=== PATIENT | female | born 1955 | race Two or more races ===

== ENCOUNTER → 2017-02-06 | Outpatient (CLI) | payer BC, OTHER ==
--- NOTE | 2017-02-06 12:35 | REP ---
Left knee six views : There is no fracture or dislocation. Mineralization and joint spaces are normal. There are no calcifications or foreign bodies. Impression: Negative left knee . Signed by Ariel Wing MD 02/06/2017 12:27 P
== END ==
LOC: M LRY 11:55
PROVIDERS: ATTEND Nurse Practitioner Family
DX: M25.562 Pain in left knee (principal)

== ENCOUNTER → 2018-08-30 | Outpatient (REF) | payer OTHER | LOC: M LAB REF 11:45 | PROVIDERS: ATTEND Registered Nurse | DX: L82.0 Inflamed seborrheic keratosis (principal) ==

== ENCOUNTER → 2022-07-19 | Outpatient (REF) | payer MEDICARE, OTHER ==
[2022-07-19 19:09] LABS: APPEARANCE, URINE MANUAL CLEAR (CLEAR); BILIRUBIN, URINE MANUAL NEGATIVE (NEGATIVE); COLOR, URINE MANUAL DK YELLOW (YELLOW); GLUCOSE, URINE (UA) MANUAL NEGATIVE (NEGATIVE); KETONE, URINE MANUAL NEGATIVE (NEGATIVE); NITRITE, URINE MANUAL NEGATIVE (NEGATIVE); UROBILINOGEN, URINE MANUAL NORMAL (NORMAL)
[2022-07-19 19:10] LABS: BLOOD URINE MANUAL NEGATIVE (NEGATIVE)
[2022-07-19 19:33] LABS: LEUKOCYTE ESTERASE, URINE MAN NEGATIVE (NEGATIVE); PROTEIN, URINE MANUAL TRACE mg/dL (NEGATIVE)
[2022-07-19 20:39] LABS: WBC, URINE NONE SEEN /hpf (0-3)
[2022-07-19 20:40] LABS: BACTERIA, URINE SMALL AMOUNT; CALCIUM OXALATE CRYSTALS,URINE LARGE AMOUNT /hpf; HYALINE CAST, URINE NONE SEEN /lpf (0-1); MUCUS, URINE LARGE AMOUNT (NEGATIVE); RBC, URINE NONE SEEN /hpf (0-3); SQUAMOUS EPITHELIAL CELL URINE SMALL AMOUNT /hpf (SMALL AMT)
== END ==
LOC: M SMT 17:09
PROVIDERS: ATTEND Nurse Practitioner Women's Health
DX: R39.15 Urgency of urination (principal)

== ENCOUNTER → 2024-05-14 | Outpatient (REF) | payer MEDICARE, OTHER, BC ==
[2024-05-14 13:56] LABS: APPEARANCE, URINE TURBID (CLEAR); BACTERIA, URINE AUTO NEGATIVE (NEGATIVE); BILIRUBIN, URINE AUTO NEGATIVE (NEGATIVE); BLOOD, URINE BLOOD NEGATIVE (NEGATIVE); CALCIUM OXALATE CRYSTALS LARGE; COLOR, URINE AMBER (YELLOW); GLUCOSE, URINE (UA) AUTO NEGATIVE (NEGATIVE); KETONE, URINE AUTO NEGATIVE (NEGATIVE); LEUKOCYTE ESTERASE, URINE AUTO 1+ (NEGATIVE); MUCUS, URINE SMALL (NEGATIVE); NITRITE, URINE AUTO NEGATIVE (NEGATIVE); PROTEIN, URINE AUTO NEGATIVE (NEGATIVE); RBC, URINE AUTO 1 /HPF (0-3); SPECIFIC GRAVITY URINE AUTO 1.025 (1.002-1.035); SQUAMOUS EPITHELIAL CELL UR AU 5 /HPF (0-6); WBC, URINE AUTO 7 /HPF (0-3)
== END ==
LOC: M SMT 13:35
PROVIDERS: ATTEND Nurse Practitioner Family
DX: N39.0 Urinary tract infection, site not specified (principal)

== ENCOUNTER → 2024-09-21 | Outpatient (REF) | LOC: M LABCFH 16:21 | PROVIDERS: ATTEND Physician Assistant | DX: N39.0 Urinary tract infection, site not specified (principal) ==

== ENCOUNTER → 2025-01-01 | Outpatient (REF) | LOC: M LABCFH 13:14 | DX: N39.0 Urinary tract infection, site not specified (principal) ==

== ENCOUNTER → 2025-03-29 | Outpatient (REF) | LOC: M LABCFH 11:59 | DX: N39.0 Urinary tract infection, site not specified (principal) ==

== ENCOUNTER 2025-08-21 21:28 | Inpatient (IN) | payer MEDICARE, OTHER, BC ==
[~2025-08-21] VITALS: Ht 162.6 cm; Wt 51.6 kg
[2025-08-22] VITALS (8 sets, daily range): BP systolic 95–112; BP diastolic 53–57; TEMP 97.5–100; O2SAT 90–96
[2025-08-22] MEDS ORDERED: ACETAMINOPHEN 325 MG TAB PO PRN (00:20)
[2025-08-22 01:18] LABS: PLATELET COUNT, AUTOMATED 295 10^3/uL (150-450)
[2025-08-22 01:41] LABS: ALT/SGPT 43 U/L (7.0-40); AST/SGOT 101 U/L (<34); CALCIUM LEVEL 7.1 MG/DL (8.3-10.6); CARBON DIOXIDE LEVEL 26 MMOL/L (20-31); CHLORIDE LEVEL 104 MMOL/L (98-107); CREATININE FOR GFR 0.61 MG/DL (0.55-1.30); GLOMERULAR FILTRATION RATE > 90.0 (>45); POTASSIUM SERUM 3.5 MMOL/L (3.5-5.1); SODIUM LEVEL 139 MMOL/L (136-145)
[2025-08-22] MEDS: DOXYCYCLINE HYCLATE 100 MG TABLET PO SCH (02:30)
[2025-08-22] MEDS: cefTRIAXone SOD 1 GM in DEXTROSE 5% (D5W) ADV/MINI-BAG 50 ML IV SCH (02:31)
[2025-08-22] MEDS: IPRATROPIUM 0.5 MG/ALBUTEROL 2.5 MG INH SOL UD 3 ML INH SCH (02:55)
[2025-08-22] MEDS: BENZONATATE 100 MG CAPSULE PO SCH (05:56)
[2025-08-22] MEDS ORDERED: ENOXAPARIN 40 MG/0.4 ML SYRINGE (J1650 PER 10MG) SC SCH (09:00)
[2025-08-22] MEDS: OSELTAMIVIR PHOSPHATE 75 MG CAP PO SCH (09:39)
[2025-08-22] MEDS: DOCUSATE SODIUM 100 MG CAPSULE PO SCH (09:40)
[2025-08-22] MEDS ORDERED: AMPH1CAP16 PO (10:25)
[2025-08-22] MEDS ORDERED: LEVO75TA4 PO (10:25)
[2025-08-22] MEDS ORDERED: HOME MED LIST COMPLETE! XX SCH (10:25)
[2025-08-22] MEDS ORDERED: TREL1AER INH (10:25)
[2025-08-22] MEDS ORDERED: ZOLO100T PO (10:25)
[2025-08-22] MEDS ORDERED: LIFI1DRO4 OU (10:25)
[2025-08-22] MEDS ORDERED: ALEN70TA82 PO (10:25)
[2025-08-22] MEDS ORDERED: SUMA50TA2 PO (10:25)
[2025-08-22] MEDS: LEVOTHYROXINE 75 MCG TABLET (0.075 MG) PO SCH (11:55)
[2025-08-22] MEDS: SERTRALINE 100 MG TAB PO SCH (11:55)
[2025-08-22] MEDS: BUDESONIDE 0.5 MG/2 ML INHALATION SUSPENSION NEB SCH (13:15)
[2025-08-22] MEDS: LR 1,000 ML IV SCH (15:01)
[2025-08-22] MEDS: ENOXAPARIN 80 MG/0.8 ML SYRINGE (J1650 PER 10MG) SC SCH (21:33)
[2025-08-23 04:08] VITALS: BP 106/61; TEMP 97.5; O2SAT 93
[2025-08-23 06:19] LABS: BASO # 0.1 10^3/uL (0.0-0.2); BASO % 0.3 % (0.0-1.0); EOS # 0.0 10^3/uL (0.0-0.5); EOS % 0.1 % (0.0-3.0); LYMPH # 1.1 10^3/uL (1.5-5.0); LYMPH % 6.2 % (24.0-44.0); MONO # 1.0 10^3/uL (0.0-0.8); MONO % 5.5 % (2.0-8.0); NEUTROPHILS # 15.5 10^3/uL (1.5-8.5); NEUTROPHILS % 85.7 % (36.0-66.0); PLATELET COUNT, AUTOMATED 313 10^3/uL (150-450)
[2025-08-23 06:51] LABS: ALT/SGPT 73 U/L (7.0-40); AST/SGOT 149 U/L (<34); CALCIUM LEVEL 7.5 MG/DL (8.3-10.6); CARBON DIOXIDE LEVEL 28 MMOL/L (20-31); CHLORIDE LEVEL 105 MMOL/L (98-107); CREATININE FOR GFR 0.51 MG/DL (0.55-1.30); GLOMERULAR FILTRATION RATE > 90.0 (>45); MAGNESIUM LEVEL 1.8 MG/DL (1.8-2.4); POTASSIUM SERUM 3.5 MMOL/L (3.5-5.1); SODIUM LEVEL 142 MMOL/L (136-145)
[2025-08-23] MEDS: POTASSIUM CHLORIDE 10MEQ SR TABLET PO ONE (09:13)
[2025-08-23] MEDS: MAG SULF 1GM/100ML (MAG RUN) 1 GM in IV 1 EA IV ONE (09:13)
[2025-08-23 11:58] VITALS: BP 96/58; TEMP 98; O2SAT 95
[2025-08-23 19:58] VITALS: BP 102/59; TEMP 98.3; O2SAT 97
[2025-08-24 04:17] VITALS: BP 109/55; TEMP 97.6; O2SAT 96
[2025-08-24 05:47] LABS: BASO # 0.0 10^3/uL (0.0-0.2); BASO % 0.2 % (0.0-1.0); EOS # 0.0 10^3/uL (0.0-0.5); EOS % 0.3 % (0.0-3.0); LYMPH # 1.3 10^3/uL (1.5-5.0); LYMPH % 9.5 % (24.0-44.0); MONO # 0.9 10^3/uL (0.0-0.8); MONO % 6.3 % (2.0-8.0); NEUTROPHILS # 11.1 10^3/uL (1.5-8.5); NEUTROPHILS % 81.1 % (36.0-66.0); PLATELET COUNT, AUTOMATED 353 10^3/uL (150-450)
[2025-08-24 06:06] LABS: C REACTIVE PROTEIN QUANTITATIV 7.65 MG/DL (<1.0)
[2025-08-24 06:13] LABS: ALT/SGPT 57 U/L (7.0-40); AST/SGOT 78 U/L (<34); CALCIUM LEVEL 7.4 MG/DL (8.3-10.6); CARBON DIOXIDE LEVEL 28 MMOL/L (20-31); CHLORIDE LEVEL 107 MMOL/L (98-107); CREATININE FOR GFR 0.49 MG/DL (0.55-1.30); GLOMERULAR FILTRATION RATE > 90.0 (>45); MAGNESIUM LEVEL 1.9 MG/DL (1.8-2.4); POTASSIUM SERUM 4.3 MMOL/L (3.5-5.1); SODIUM LEVEL 142 MMOL/L (136-145)
[2025-08-24 12:00] VITALS: BP 134/82; TEMP 98.1; O2SAT 91
[2025-08-24 21:17] VITALS: BP 125/65; TEMP 97.8; O2SAT 95
[2025-08-25 03:54] VITALS: BP 137/77; TEMP 98.2; O2SAT 97
[2025-08-25 06:27] LABS: BASO # 0.0 10^3/uL (0.0-0.2); BASO % 0.3 % (0.0-1.0); EOS # 0.0 10^3/uL (0.0-0.5); EOS % 0.2 % (0.0-3.0); LYMPH # 1.4 10^3/uL (1.5-5.0); LYMPH % 10.1 % (24.0-44.0); MONO # 1.1 10^3/uL (0.0-0.8); MONO % 7.7 % (2.0-8.0); NEUTROPHILS # 11.2 10^3/uL (1.5-8.5); NEUTROPHILS % 79.6 % (36.0-66.0); PLATELET COUNT, AUTOMATED 453 10^3/uL (150-450)
[2025-08-25 06:41] LABS: CALCIUM LEVEL 8.0 MG/DL (8.3-10.6); CARBON DIOXIDE LEVEL 27 MMOL/L (20-31); CHLORIDE LEVEL 107 MMOL/L (98-107); CREATININE FOR GFR 0.50 MG/DL (0.55-1.30); GLOMERULAR FILTRATION RATE > 90.0 (>45); POTASSIUM SERUM 4.5 MMOL/L (3.5-5.1); SODIUM LEVEL 142 MMOL/L (136-145)
[2025-08-25 12:00] VITALS: BP 121/83; TEMP 97.7; O2SAT 93
[2025-08-25] MEDS ORDERED: ENOX80IN3 SC (16:49)
[2025-08-25 20:47] VITALS: BP 125/88; TEMP 98.1; O2SAT 92
[2025-08-26 04:00] VITALS: BP 133/80; TEMP 98.6; O2SAT 92
[2025-08-26 06:18] LABS: BASO # 0.0 10^3/uL (0.0-0.2); BASO % 0.3 % (0.0-1.0); EOS # 0.0 10^3/uL (0.0-0.5); EOS % 0.3 % (0.0-3.0); LYMPH # 1.6 10^3/uL (1.5-5.0); LYMPH % 14.0 % (24.0-44.0); MONO # 0.9 10^3/uL (0.0-0.8); MONO % 7.9 % (2.0-8.0); NEUTROPHILS # 8.7 10^3/uL (1.5-8.5); NEUTROPHILS % 75.1 % (36.0-66.0); PLATELET COUNT, AUTOMATED 499 10^3/uL (150-450)
[2025-08-26 12:10] VITALS: BP 118/73; TEMP 98.4; O2SAT 93
[2025-08-26] MEDS ORDERED: OSEL75CA2 PO (14:25)
[2025-08-26] MEDS ORDERED: BENZ-18 PO (14:25)
[2025-08-26] MEDS ORDERED: ENOX80IN3 SC (14:25)
[2025-08-26] MEDS ORDERED: AMOX875T2 PO (14:26)
[2025-08-26 20:45] VITALS: BP 119/63; TEMP 98.4; O2SAT 91
[2025-08-27 04:45] VITALS: BP 123/73; TEMP 99; O2SAT 93
== END 2025-08-27 12:20 | disposition home health service (06) | DRG 871 ==
LOC: INTOOBSV 08-22 00:08 → M MSPAV 08-22 00:08 → OBSVTOIN 08-22 00:16
PROVIDERS: ADMIT Student in an Organized Health Care Education/Training Program; ATTEND Student in an Organized Health Care Education/Training Program
PROC: B246ZZZ Ultrasonography of Right and Left Heart (ICD-10-PCS; principal; 2025-08-22)
DX: A41.9 Sepsis, unspecified organism (principal); J18.9 Pneumonia, unspecified organism; J96.01 Acute respiratory failure with hypoxia; J10.00 Influenza due to other identified influenza virus with unspecified type of pneumonia; J44.0 Chronic obstructive pulmonary disease with (acute) lower respiratory infection; D68.61 Antiphospholipid syndrome; K50.90 Crohn's disease, unspecified, without complications; I10 Essential (primary) hypertension; E03.9 Hypothyroidism, unspecified; G47.33 Obstructive sleep apnea (adult) (pediatric); M81.0 Age-related osteoporosis without current pathological fracture; G89.4 Chronic pain syndrome; Z87.891 Personal history of nicotine dependence; Z79.890 Hormone replacement therapy; Z79.899 Other long term (current) drug therapy; Z88.8 Allergy status to other drugs, medicaments and biological substances; Z91.048 Other nonmedicinal substance allergy status; Z99.81 Dependence on supplemental oxygen

== ENCOUNTER → 2025-08-21 | Outpatient (REF) ==
[~2025-08-21] MED LIST: ALEN70TA82 PO; AMOX875T2 PO; AMPH1CAP16 PO; BENZ-18 PO; ENOX80IN3 SC; LEVO75TA4 PO; LIFI1DRO4 OU; OSEL75CA2 PO; SUMA50TA2 PO; TREL1AER INH; ZOLO100T PO
== END ==
LOC: M CFLAB 14:12
DX: Z01.89 Encounter for other specified special examinations (principal)